=== PATIENT | female | born 1955 | race Caucasian/White ===

== ENCOUNTER 2020-05-14 19:16 | Inpatient (IN) | payer OTHER ==
--- NOTE | 2020-05-14 19:24 | PDOC ---
History of Present Illness - General Chief Complaint: Seizure Stated Complaint: PT PASSED OUT Time Seen by Provider: 05/14/20 19:24 - History of Present Illness Initial Comments: 05/14/20 19:44 64yo F h/o everyday EtOH use w/ PMH HTN and HDL presents s/p passing out after dinner. She was sitting at the table when she went unconscious. Family states her hands started shaking. Unknown how long she was unconscious. Upon waking she felt "slow, and my vision was hot." She pointed to her temples and stated they felt hot. Once she woke up and got up she threw up 5x. She feels "much better now." Denies past seizures, changes in meds, recent illness, travel, sore throat, cough, fever. 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 Drinks EtOH everyday (2glasses of wine). negative CAGE exam. Past History - Travel History Traveled outside of the country in the last 30 days: No - Medical History Allergies/Adverse Reactions: Allergies Allergy/AdvReac Type Severity Reaction Status Date / Time No Known Allergies Allergy Verified 05/14/20 19:27 Home Medications: Ambulatory Orders Olmesartan Medoxomil [Benicar (Nf)] 10 mg PO DAILY 05/14/20 Simvastatin 10 mg PO DAILY 05/14/20 Anemia: No Asthma: No Cancer: No Cardiac Disorders: Yes (regurgitation) Hx Myocardial Infarction: No CVA: No COPD: No CHF: No DVT: No Dementia: No Diabetes: No Hx Glaucoma: No Dialysis: No GI Disorders: No Disorders: No HTN: Yes Hypercholesterolemia: Yes HIV: No Kidney Stones: No Liver Disease: No Psychiatric Problems: No Seizures: No Thyroid Disease: No Lung CA: No Review of Systems - Review of Systems Able to Perform ROS?: Yes Is the patient limited Iranian proficient: No Constitutional: Yes: Weight Stable. No: Chills, Diaphoresis, Fever, Loss of Appetite, Unintentional Wgt. Loss HEENTM: No: Blurred Vision, Recent change in vision, Nose Pain, Tinnitus Respiratory: No: Cough, Orthopnea, Shortness of Breath, Productive cough Cardiac (ROS): No: Chest Pain, Edema, Chest Tightness ABD/GI: No: Constipated, Nausea, Poor Appetite, Vomiting, Abdominal cramping : No: Burning, Dysuria, Discharge, Frequency Musculoskeletal: No: Muscle Pain, Muscle Weakness, Neck Pain Integumentary: No: Dryness, Rash Neurological: No: Headache, Numbness, Paresthesia, Seizure Endocrine: No: Unexplained Weight Loss *Physical Exam - Physical Exam General Appearance: Yes: Nourished, Appropriately Dressed, Apparent Distress, Alcohol on Breath, Intoxicated HEENT: positive: ANDRADE, Normal ENT Inspection, Normal Voice, Pharynx Normal Neck: positive: Trachea midline. negative: Tender, Rigid Respiratory/Chest: positive: Lungs Clear, Normal Breath Sounds. negative: Chest Tender, Respiratory Distress, Accessory Muscle Use Cardiovascular: positive: Regular Rhythm, Regular Rate, S1, S2. negative: JVD, Murmur Gastrointestinal/Abdominal: positive: Normal Bowel Sounds, Soft Musculoskeletal: positive: Normal Inspection. negative: CVA Tenderness Extremity: positive: Normal Capillary Refill Integumentary: positive: Normal Color, Dry, Warm Neurologic: positive: traveling buyer II-XII NML intact, Fully Oriented, Alert, Normal Mood/Affect, Normal Response, Motor Strength 5/5. negative: Numbness Heart Score/ECG Review - History History: Slightly suspicious - Electrocardiogram EKG: Non specific repolarization disturbance - Age Age: >/= 65 - Risk Factors Risk Factors Heart Score: Yes Hx Hypercholesterolemia, Yes Hx Hypertension, Yes Smoking History, Yes Positive family hx of cardiac disease Based on the list above the patient has:: >/=3 risk factors or Hx atherosclerotic disease - Troponin Troponin: </= normal limit - Score Heart Score - Total: 5 ED Treatment Course - LABORATORY CBC & Chemistry Diagram: 05/14/20 21:10 05/14/20 21:10 - RADIOLOGY Radiograph Interpretation: 05/14/20 23:39 THIS IS A PRELIMINARY REPORT DATE OF SERVICE: 2020-05-14 21:07:55 IMAGES: 222 EXAM: HEAD CT WITHOUT CONTRAST HISTORY: Contiguous axial tomographic sections were obtained from the base of the skull to the vertex without the use of intravenous contrast. Sagittal and coronal reformatted images are provided. COMPARISON: None. Preliminary findings/impression: 1. No evidence of acute intracranial hemorrhage on this study. 2. Bilateral ethmoid sinus disease. 3. Nasal septal deviation. 4. Atherosclerotic calcifications. Patient Information: : 1955 Order Type: Preliminary Name: MARIELA GARZA Sex: F Study Description: CT HEAD Modality: CT Location: [facility] Referring Physician: MARIN GREEN One or more of the following dose reduction techniques were used: automated exposure control, adjustment of the mA and/or kV according to patient size, use of iterative reconstructive technique. THIS DOCUMENT HAS BEEN ELECTRONICALLY SIGNED Jan Duggan MD 05/14/2020 21:27 EST Medical Decision Making - Medical Decision Making 05/14/20 20:26 spoke w/ fiance: unconscious [id number]. never hit the floor. no shaking whatsoever. 05/14/20 20:37 Syncope vs. seizure Discharge - Discharge Information Problems reviewed: Yes Clinical Impression/Diagnosis: Syncope and collapse Condition: Fair - Admission Yes - Follow up/Referral Referrals: Jaime Andrew MD [Primary Care Provider] - - Patient Discharge Instructions - Post Discharge Activity
[2020-05-14 19:27] VITALS: BMI 22.6
[2020-05-14] MEDS ORDERED: LACTATED RINGERS SOLUTION 1000 ML INFUS.BAG IV ONE (19:54)
--- NOTE | 2020-05-14 20:36 | PDOC ---
Documentation entered by Swathi Ruiz SCRIBE, acting as scribe for Char Newman MD. Char Newman MD: This documentation has been prepared by the henryibeJoseph Sydney, SCRIBE, under my direction and personally reviewed by me in its entirety. I confirm that the documentation accurately reflects all work, treatment, procedures, and medical decision making performed by me. Attending Attestation - Resident Resident Name: Juvenal Aguilera - ED Attending Attestation I have performed the following: I have examined & evaluated the patient, The case was reviewed & discussed with the resident, I agree w/resident's findings & plan, Exceptions are as noted - HPI HPI: 05/14/20 19:57 64 yo F h/o EtOH abuse, HTN, HLD who presents to the ED s/p syncopal vs siezure episode. As per patient, she was sitting at her dinner with boyfriend and cousin when she suddenly went unconscious for an unknown period of time. she states she was still sitting at the table, did not hit the floor. per EMS, Patients family reported her hands were shaking during the episode. She states she threw up 5 times when regained consciousness she vomited 5 times. now states she feels better. denies recent head trauma. no park. reports 2 glasses of wine today, daily etoh use. denies h/o withdrawal seizures. denies cp sob or fevers recently. additional history per her boyfriend, who states she became unconsiousnes lasting around a minute. boyfriend denies any body shaking. was able to hold her up, and confirms she did not hit the floor. Denies past history of seizures or recent change in medications. Allergies:NKDA PCP: Dr. Simmons 05/14/20 20:23 - Physicial Exam PE: 05/14/20 20:27 awake alert NAD head atraumatic. lungs clear bilat heart RRR no mrg abd soft nt nd ext wwp. skin warm and dry. alert oriented x 3. 5/5/ all four ext. speech clear. - Medical Decision Making 05/14/20 20:35 64 y o F h/o etoh abuse, htn hld s/p syncopal episode, questionable seizure activity. differential includes intoxication, electrolyte abnormality dysrhtymia, dehydration, seizure, plan ct head labs ua cxr, cbc cmp trop ekg Heart Score/ECG Review #1 General ECG Interpretation: Sinus Rhythm, Normal Rate (71), Normal Intervals, No acute ischemic changes (TWI AVL, V2, V3. no st elevation or depression. intervals normal.) #2 General ECG Interpretation: Sinus Rhythm, Normal Rate (68), Normal Intervals, No acute ischemic changes Discharge - Discharge Information Problems reviewed: Yes Clinical Impression/Diagnosis: Syncope and collapse Condition: Fair - Follow up/Referral - Patient Discharge Instructions - Post Discharge Activity
[2020-05-14 21:21] LABS: URINE APPEARANCE CLEAR; URINE BILIRUBIN NEGATIVE (NEGATIVE); URINE COLOR YELLOW; URINE GLUCOSE (UA) NEGATIVE (NEGATIVE); URINE KETONE TRACE (NEGATIVE); URINE LEUK ESTERASE NEGATIVE (NEGATIVE); URINE NITRITE NEGATIVE (NEGATIVE); URINE PROTEIN NEGATIVE (NEGATIVE); URINE UROBILINOGEN 0.2 mg/dL (0.2-1.0)
[2020-05-14 21:31] LABS: COCAINE, UR NEGATIVE ng/ml (CUTOFF=300); OPIATES, URI NEGATIVE ng/ml (CUTOFF=300); PHENCYCLIDINE,URINE NEGATIVE ng/ml (CUTOFF=25); URINE AMPHETAMINES NEGATIVE ng/ml (CUTOFF=500); URINE BARBITURATES NEGATIVE ng/ml (CUTOFF=200)
[2020-05-14 21:32] LABS: METHADONE, UR NEGATIVE ng/ml (CUTOFF=300); URINE BENZODIAZEPINES NEGATIVE ng/ml (CUTOFF=200)
[2020-05-14 21:34] LABS: HEMATOCRIT 35.5 % (32.4-45.2); HEMOGLOBIN 11.9 GM/dL (10.7-15.3); MCHC 33.4 g/dl (32.0-36.0); MEAN CELL VOLUME 89.7 fl (80-96); MEAN PLT VOLUME 8.9 fl (7.5-11.1); PLATELET COUNT 253 K/MM3 (134-434); RBC 3.95 M/mm3 (3.60-5.2); RDW 13.7 % (11.6-15.6); WHITE BLOOD COUNT 11.2 K/mm3 (4.0-10.0)
[2020-05-14 21:41] LABS: ALBUMIN 3.8 g/dl (3.4-5.0); ALK PHOS 54 U/L (45-117); ANION GAP 9 MMOL/L (8-16); BILIRUBIN,TOTAL 0.3 mg/dL (0.2-1); BLOOD UREA NITROGEN 15.2 mg/dL (7-18); CALCIUM 8.8 mg/dL (8.5-10.1); CHLORIDE 105 mmol/L (98-107); CO2 25 mmol/L (21-32); CREATININE 0.8 mg/dL (0.55-1.3); GLUCOSE,RANDOM 79 mg/dL (74-106); LIPASE 104 U/L (73-393); SGOT/AST 18 U/L (15-37); SGPT/ALT 24 U/L (13-61); SODIUM 139 mmol/L (136-145); TOT PROT 7.1 g/dl (6.4-8.2)
--- NOTE | 2020-05-14 23:02 | PN ---
Teaching Attending Note Name of Resident: [place] ATTENDING PHYSICIAN STATEMENT I saw and evaluated the patient. I reviewed the resident's note and discussed the case with the resident. I agree with the resident's findings and plan as documented. SUBJECTIVE: Patient is a 64 year old woman with a PMH of Stress cardiomyopathy (Broken heart syndrome), Alcohol abuse, HTN and HLD who presents to the ER after a syncopal episode. Patient reports she was sitting at her dinner with boyfriend and cousin when she suddenly went unconscious for an unknown period of time. States she was still sitting at the table, did not hit the floor. Patients family reported her hands were shaking during the episode. She states she vomited up 5 times when she regained consciousness and had urinary incontinence. Denies recent head trauma or headache. Drank 2 glasses of wine today and everyday. Denies history of withdrawal seizures or recent change in medications. Patient denies chest pain, shortness of breath, abdominal pain, palpitations, dizziness, fever, chills, diarrhea, constipation, dysuria, frequency, urgency, melena, hematochezia or hematuria. 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 Denies alcohol, tobacco or illicit drug use. No sick contacts or recent travels. Family history of heart attack in mother, "stomach aneurysm" (?AAA) and Alzheimer's dementia in father. OBJECTIVE: Alert and not orthostatic Vital Signs Period Temp Pulse Resp BP Sys/Tolentino Pulse Ox Last 24 Hr 98.2 F 66 18 112/71 97 HEENT: No Jaundice, eye redness or discharge, PERRLA, EOMI. Normocephalic, atraumatic. External ears are normal and hearing is grossly intact. No nasal discharge. Neck: Supple, nontender. No palpable adenopathy or thyromegaly. No JVD Chest: Good effort. Clear to auscultation and percussion. Heart: Regular. No S3, rub or murmur Abdomen: Not distended, soft, nontender and no HSM. No rebound or guarding. Normal bowel sounds. Ext: Peripheral pulses intact. No leg edema. Skin: Warm and dry. No petechiae, rash or ecchymosis. Neuro: Alert. Oriented x3. CN 2-12 grossly intact. Sensation grossly intact in all four extremities and DTR are symmetric. Psych: Appropriate mood and affect. Good insight. Abnormal Lab Results 05/14/20 05/14/20 05/14/20 21:10 21:10 21:10 WBC 11.2 H Urine Ketones Trace H U Marijuana (THC) Screen Positive A* Home Medications Medication Instructions Recorded Olmesartan Medoxomil [Benicar (Nf)] 10 mg PO DAILY 05/14/20 Simvastatin 10 mg PO DAILY 05/14/20 Current Medications Generic Name Dose Route Start Last Admin Trade Name Tanvi PRN Reason Stop Dose Admin Enoxaparin Sodium 40 mg 05/15/20 10:00 Lovenox - SQ DAILY DEVONTE Folic Acid 1 mg 05/15/20 10:00 Folic Acid - PO DAILY DEVONTE Folic Acid 1 mg/ Thiamine HCl 1,000 mls @ 125 mls/hr 05/15/20 01:30 05/15/20 01:48 100 mg/ Multivitamins/Minerals IVPB 05/15/20 09:29 125 mls/hr 10 ml/ Sodium Chloride ONCE ONE Administration Pantoprazole Sodium 20 mg 05/15/20 10:00 Protonix - PO DAILY DEVONTE Thiamine HCl 100 mg 05/15/20 10:00 Vitamin B1 - PO DAILY [facility] ASSESSMENT AND PLAN: 1. Syncope/Rule our seizure - Etiology unclear, but complex partial seizures or alcohol withdrawal are possibilities. Urine toxicology screen showed marijuana. No evidence of acute intracranial pathology on noncontrast head CT scan, but showed bilateral ethmoid sinus disease, nasal septal deviation and atherosclerotic calcifications. Mild leukocytosis may be due to stress - will monitor and get CXR. EKG shows NSR at 71/minute and QTc 465 with no T wave inversion aVL, V1-V3. No old EKG available for comparison. Initial troponin is negative. Viral testing for COVID-19 ordered and patient placed on airborne, droplet and contact isolation. Will admit to telemetry, treat with IV Protonix, IV NS, trend troponin, repeat EKG, get ECHO, EEG, TSH, carotid doppler, fasting lipids, brain MRI, do speech and swallow evaluation and consult PT/Neurology. Will continue comprehensive care for all of patients comorbid conditions. 2. Alcohol abuse Will implement [facility] alcohol withdrawal protocol and do neurochecks. Implement seizure, fall and aspiration precautions. Treat with IV Banana bag, thiamine and folic acid. Monitor and replete electrolytes (Ca,Mg,K,P). Counseled patient about abstaining from alcohol. Will consult marketing graphics specialist and refer to alcohol detox upon discharge. 3. Hypertension Will allow permissive hypertension for 24 to 48 hours. Restart suitable outpatient antihypertensive drugs when clinically appropriate. Subsequently, will revise regimen to ensure [id number] excellent BP control. Patient counseled on the injurious effects of uncontrolled hypertension. Nonpharmacologic measures to control hypertension like weight loss, salt restriction and exercise stressed. Importance of adherence to treatment regimen and attainment of normotension emphasized. 4. DVT prophylaxis - Lovenox 40 mg SQ q 24 hours. 5. Advance directives - Full code
[2020-05-15] MEDS ORDERED: FOLIC ACID INJECTION - 1 MG, THIAMINE HCL 100 MG, MULTIVIT INJECTION ADULT 10 ML in SOD... IVPB ONE (01:30)
--- NOTE | 2020-05-15 02:41 | HP ---
CHIEF COMPLAINT: loss of consciousness PCP: Dr. Simmons HISTORY OF PRESENT ILLNESS: 64 year old female patient with past medical history that includes broken heart syndrome, HTN, and HLD, who presented to the emergency room after a loss of consciousness. The patient had been eating dinner with her cousin and fiance when, per the patient's fiance, the patient suddenly stopped talking and then made snoring sounds for about a minute. The patient reports having loss of consciousness during this time, as well as urinary incontinence. The patient's fiance denied seeing the patient shaking, reporting that he only saw her right hand ball up into a fist, but he reports that the patient's cousin reported seei ng the patient's arm shake. The fiance then tried to get the patient out of her trance, including trying to "do the heimlech maneuver". The patient then came to and became nauseous and vomited 3 to 5 times, which the patient reports only had the stomach contents of her dinner. The patient then went to the bathroom and vomited 2 more times. The patient then went to the bedroom and vomited 2 more times. The patient reports vomiting 2 more times with EMS while coming to the ED. The patient was diagnosed with "having a broken heart" by her Adding Machine Operator Dr. Andrew 3 years ago. Her heart was broken then due to her 's . The patient reports getting an ECHO done, as well as a stress test. She follows up with Dr. Andrew "for her broken heart". ER course was notable for: (1) ECG (2) Head CT, CXR (3) Orthostatics (120/81 lying down, 146/76 sitting, 144/82 standing) Recent Travel: denies PAST MEDICAL HISTORY: HTN, HLD, Broken Heart Syndrome PAST SURGICAL HISTORY: , Tonsillectomy Social History: Smoking: Denies Alcohol: 2 glasses of wine every night Drugs: Marijuana Allergies No Known Allergies Allergy (Verified 05/14/20 19:27) HOME MEDICATIONS: Home Medications Medication Instructions Recorded Olmesartan Medoxomil [Benicar (Nf)] 10 mg PO DAILY 05/14/20 Simvastatin 10 mg PO DAILY 05/14/20 REVIEW OF SYSTEMS CONSTITUTIONAL: Absent: fever, chills HEENT: Absent: tinnitus CARDIOVASCULAR: Absent: chest pain, palpitations peripheral edema RESPIRATORY: Absent: shortness of breath GASTROINTESTINAL: Absent: diarrhea, constipation GENITOURINARY: Absent: dysuria NEUROLOGIC: Absent: headache, dizziness PHYSICAL EXAMINATION Vital Signs - 24 hr 05/14/20 05/14/20 05/15/20 19:22 23:22 00:51 Temperature 98.2 F Pulse Rate 66 Pulse Rate [ 72 68 Apical] Respiratory 18 12 12 Rate Blood Pressure 112/71 Blood Pressure 123/82 118/66 [Left Arm] O2 Sat by Pulse 97 97 97 Oximetry (%) GENERAL: Awake, alert, and fully oriented, in no acute distress. HEAD: Normal with no signs of trauma. EYES: Pupils equal, round and reactive to light, extraocular movements intact. No lid lag. EARS, NOSE, THROAT: Ears normal, nares patent, oropharynx clear without exudates. Moist mucous membranes. NECK: Normal range of motion, supple without lymphadenopathy, JVD, or masses. LUNGS: Breath sounds equal, clear to auscultation bilaterally. No wheezes, and no crackles. No accessory muscle use. HEART: Regular rate and rhythm, normal S1 and S2 without murmur, rub or gallop. ABDOMEN: Soft, nontender, not distended, normoactive bowel sounds, no guarding, no rebound, no masses. MUSCULOSKELETAL: Normal range of motion at all joints. No bony deformities or tenderness. UPPER EXTREMITIES: 2+ pulses, warm, well-perfused. No cyanosis. No clubbing. No peripheral edema. LOWER EXTREMITIES: 2+ pulses, warm, well-perfused. No calf tenderness. No peripheral edema. NEUROLOGICAL: Cranial nerves II-XII intact. Normal speech. Normal gait. Muscle strength +5/5 in upper and lower extremities bilaterally. Sensation intact in upper and lower extremities bilaterally. DTR's +2/4 in upper and lower extremities bilaterally. Cajznj-[id number] test negative. PSYCHIATRIC: Cooperative. Good eye contact. Appropriate mood and affect. SKIN: Warm, dry, normal turgor, no rashes or lesions noted, normal capillary refill. Laboratory Results - last 24 hr 05/14/20 05/14/20 05/14/20 21:10 21:10 21:10 WBC 11.2 H RBC 3.95 Hgb 11.9 Hct 35.5 MCV 89.7 MCH 30.0 MCHC 33.4 RDW 13.7 Plt Count 253 MPV 8.9 Sodium 139 Potassium 4.0 Chloride 105 Carbon Dioxide 25 Anion Gap 9 BUN 15.2 Creatinine 0.8 Est GFR (CKD-EPI)AfAm 89.04 Est GFR (CKD-EPI)NonAf 76.83 Random Glucose 79 Calcium 8.8 Magnesium Total Bilirubin 0.3 AST 18 ALT 24 Alkaline Phosphatase 54 Creatine Kinase 66 Troponin I < 0.02 Total Protein 7.1 Albumin 3.8 Lipase 104 Urine Color Yellow Urine Appearance Clear Urine pH 6.0 Ur Specific [place] 1.016 Urine Protein Negative Urine Glucose (UA) Negative Urine Ketones Trace H Urine Blood Negative Urine Nitrite Negative Urine Bilirubin Negative Urine Urobilinogen 0.2 Ur Leukocyte Esterase Negative Opiates Screen Methadone Screen Barbiturate Screen Phencyclidine Screen Ur Amphetamines Screen MDMA (Ecstasy) Screen Benzodiazepines Screen Cocaine Screen U Marijuana (THC) Screen Alcohol, Quantitative < 3 05/14/20 05/14/20 21:10 21:10 WBC RBC Hgb Hct MCV MCH MCHC RDW Plt Count MPV Sodium Potassium Chloride Carbon Dioxide Anion Gap BUN Creatinine Est GFR (CKD-EPI)AfAm Est GFR (CKD-EPI)NonAf Random Glucose Calcium Magnesium 2.1 Total Bilirubin AST ALT Alkaline Phosphatase Creatine Kinase Troponin I Total Protein Albumin Lipase Urine Color Urine Appearance Urine pH Ur Specific [place] Urine Protein Urine Glucose (UA) Urine Ketones Urine Blood Urine Nitrite Urine Bilirubin Urine Urobilinogen Ur Leukocyte Esterase Opiates Screen Negative Methadone Screen Negative Barbiturate Screen Negative Phencyclidine Screen Negative Ur Amphetamines Screen Negative MDMA (Ecstasy) Screen Negative Benzodiazepines Screen Negative Cocaine Screen Negative U Marijuana (THC) Screen Positive A* Alcohol, Quantitative ASSESSMENT/PLAN: 64 year old female patient with past medical history that includes broken heart syndrome, HTN, and HLD, who presented to the emergency room after a loss of consciousness. 1. Loss of consciousness secondary to Seizure vs. TIA vs. alternate etiology - Head CT showed showed bilateral ethmoid sinus disease, nasal septal deviation and atherosclerotic calcifications. - Orthostatics negative - EEG - TSH - EKG - Carotid Doppler - MRI - Fasting lipids - Neuro consulted 2. HTN - Permissive hypertension in case patient had a TIA - Can restart patient on home blood pressure medications when clinically appropriate # FEN - Monitor Electrolytes. Sodium Controlled Diet (NPO until after fasting lipid profile) DVT PPx - Lovenox SQ Family Medical History Family History: As Documented Family Hx Coronary Artery Disease: Mother ( at 91 from [place]) Other Family History: Father - at 77 of a "stomah aneurysm" per patient (AAA ? ) and had Alzheimer's Disease Visit type - Medication Review Med list reviewed for High Risk Meds patients 65 and older: Yes - Emergency Visit Emergency Visit: Yes ED Registration Date: 05/15/20 Care time: The patient presented to the Emergency Department on the above date and was hospitalized for further evaluation of their emergent condition. - New Patient This patient is new to me today: Yes Date on this admission: 05/15/20 - Critical Care Critical Care patient: No ATTENDING PHYSICIAN STATEMENT I saw and evaluated the patient. I reviewed the resident's note and discussed the case with the resident. I agree with the resident's findings and plan as documented. SUBJECTIVE: OBJECTIVE: ASSESSMENT AND PLAN:
[2020-05-15 07:26] LABS: BASO % 0.4 % (0-2.0); EOS % 3.1 % (0-4.5); HEMOGLOBIN 10.5 GM/dL (10.7-15.3); LYMPH % 23.6 % (8-40); MCH 29.8 pg (25.7-33.7); MCHC 33.8 g/dl (32.0-36.0); MEAN CELL VOLUME 88.4 fl (80-96); MEAN PLT VOLUME 7.5 fl (7.5-11.1); MONO % 10.6 % (3.8-10.2); NEUT % 62.3 % (42.8-82.8); PLATELET COUNT 257 K/MM3 (134-434); RDW 13.7 % (11.6-15.6)
[2020-05-15 07:56] LABS: ALBUMIN 3.3 g/dl (3.4-5.0); BILIRUBIN,TOTAL 0.4 mg/dL (0.2-1); BLOOD UREA NITROGEN 11.2 mg/dL (7-18); CALCIUM 8.2 mg/dL (8.5-10.1); CREATININE 0.7 mg/dL (0.55-1.3); MAGNESIUM 2.1 mg/dL (1.8-2.4); PHOSPHOROUS 3.2 mg/dL (2.5-4.9); POTASSIUM 3.8 mmol/L (3.5-5.1); TOT PROT 5.8 g/dl (6.4-8.2)
[2020-05-15 08:01] LABS: CHOLESTEROL 198 mg/dL (50-200); HDL CHOLESTEROL 101 mg/dL (40-60); LDL CHOLESTEROL (ONLY SJRH) 87 mg/dL (5-100); TRIGLYCERIDES 87 mg/dL (0-150)
--- NOTE | 2020-05-15 09:36 | CON.NEURO ---
Consult - Smoking History Smoking history: Never smoked Have you smoked in the past 12 months: No Home Medications - Allergies Allergies/Adverse Reactions: Allergies Allergy/AdvReac Type Severity Reaction Status Date / Time No Known Allergies Allergy Verified 05/14/20 19:27 - Home Medications Home Medications: Ambulatory Orders Olmesartan Medoxomil [Benicar (Nf)] 10 mg PO DAILY 05/14/20 Simvastatin 10 mg PO DAILY 05/14/20 Family Medical History Family Hx Coronary Artery Disease: Mother ( at 91 from [place]) Other Family History: Father - at 77 of a "stomah aneurysm" per patient (AAA ? ) and had Alzheimer's Disease Physical Exam-Neuro Vital Signs: Vital Signs Temperature 98 F 05/15/20 07:05 Pulse Rate 71 05/15/20 07:05 Respiratory Rate 18 05/15/20 07:05 Blood Pressure 126/77 05/15/20 07:05 O2 Sat by Pulse Oximetry (%) 95 05/15/20 07:05 Labs: CBC, BMP 05/15/20 06:55 05/15/20 06:55 Assessment/Plan cc Passing out and hand shaking episode on april HPI 64 year old female has hitory of broken heart syndrome, HTN, and HLD, who was having dinner with her fiance and cousin. Pateint has slumped over and started making snoring sounds. There was loc and urinary incointnence. Pateint was seen shaking her right hand to and fro. . She has two more episode of vomiting during that time. There was no generalized tonic clonic seizure or toingue bite. Her ct head is normal. She was not orthostatic at arrival. She denies any focal neurological symptoms or sickness. (1) ECG (2) Head CT, CXR (3) Orthostatics (120/81 lying down, 146/76 sitting, 144/82 standing) Recent Travel: denies PAST MEDICAL HISTORY: HTN, HLD, Broken Heart Syndrome PAST SURGICAL HISTORY: , Tonsillectomy Social History: Smoking: Denies Alcohol: 2 glasses of wine every night Drugs: Marijuana Allergies No Known Allergies Allergy (Verified 05/14/20 19:27) HOME MEDICATIONS: Home Medications Medication Instructions Recorded Olmesartan Medoxomil [Benicar (Nf)] 10 mg PO DAILY 08/30/20 Simvastatin 10 mg PO DAILY 05/14/20 ROS,FH,SH reviewed in chart NEUROLOGICAL EXAMINATION Alert oriented x 3, neck is supple vss, speech is normal, eomi, pupils reactive , no face asymmetry moving all ext sensation is normal gait and coordination is normal ct head is unremarkable being admitted to tele for further cardiac evaluation Assessment/Plan 64 year old female history of htn, hld came with episode of passing out and ? focal seizure like activity. Patinet has normal ct head and normal neuro exam. Most likley this event seems to be syncope but possibility of of complex Partial seizure cant be be ruled out Plan: -- no need for AED - MRI of brain - eeg - seizrue precautions and driving precautions discussed with pateint - tele monitoring Thanking you so much Garret Hayward MD
[2020-05-15] MEDS ORDERED: ENOXAPARIN NA (PORCINE) 40 MG/0.4 ML DISP.SYRIN SQ SCH (10:00)
[2020-05-15] MEDS ORDERED: FOLIC ACID 1 MG TABLET (FP) PO SCH (10:00)
[2020-05-15] MEDS ORDERED: PANTOPRAZOLE 20 MG TABLET PO SCH (10:00)
[2020-05-15] MEDS ORDERED: THIAMINE HCL 100 MG TABLET (FP) PO SCH (10:00)
[2020-05-15] MEDS ORDERED: THIAMINE HCL 100 MG TABLET (FP) ONE (10:06)
[2020-05-15] MEDS ORDERED: ENOXAPARIN NA (PORCINE) 40 MG/0.4 ML DISP.SYRIN SQ ONE (10:06)
[2020-05-15] MEDS ORDERED: PANTOPRAZOLE 20 MG TABLET PO ONE (10:06)
[2020-05-15] MEDS ORDERED: FOLIC ACID 1 MG TABLET (FP) ONE (10:06)
--- NOTE | 2020-05-15 10:31 | CONSULT ---
Admitting History and Physical - Admission History of Present Illness: Per EMR- 64 year old female patient with past medical history that includes broken heart syndrome, HTN, and HLD, who presented to the emergency room after a loss of consciousness. The patient had been eating dinner with her cousin and fiance when, per the patient's fiance, the patient suddenly stopped talking and then made snoring sounds for about a minute. The patient reports having loss of consciousness during this time, as well as urinary incontinence. The patient's fiance denied seeing the patient shaking, reporting that he only saw her right hand ball up into a fist, but he reports that the patient's cousin reported seei ng the patient's arm shake. The fiance then tried to get the patient out of her trance, including trying to "do the heimlech maneuver". The patient then came to and became nauseous and vomited 3 to 5 times, which the patient reports only had the stomach contents of her dinner. The patient then went to the bathroom and vomited 2 more times. The patient then went to the bedroom and vomited 2 more times. The patient reports vomiting 2 more times with EMS while coming to the ED. Per neurology-normal ct head and normal neuro exam. Most likely this event seems to be syncope but possibility of of complex Partial seizure cant be be ruled out Plan: -- no need for AED - MRI of brain - eeg - seizrue precautions and driving precautions discussed with pateint - tele monitoring Selected Entries 05/15/20 05/15/20 05/15/20 00:51 07:04 07:05 Temperature 98.1 F 98 F Pulse Rate [ 68 70 71 Apical] Blood Pressure 118/66 146/78 126/77 [Left Arm] Laboratory Tests 05/14/20 05/14/20 05/15/20 21:10 23:05 06:55 WBC 11.2 H 7.0 COVID-19 (TIFFANIE) Pending NPO - Smoking History Smoking history: Never smoked Have you smoked in the past 12 months: No History - Admission Reason For Visit: SYNCOPE AND COLLAPSE Recommendations - Speech Evaluation, Impression/Plan Impression: Chart reviewed. Discharged before seen. Not evaluated.
--- NOTE | 2020-05-15 11:16 | EKG ---
Test Reason : Blood Pressure : / mmHG Vent. Rate : 068 BPM Atrial Rate : 068 BPM P-R Int : 148 ms QRS Dur : 078 ms QT Int : 418 ms P-R-T Axes : 075 012 068 degrees QTc Int : 444 ms NORMAL SINUS RHYTHM NONSPECIFIC T WAVE ABNORMALITY ABNORMAL ECG WHEN COMPARED WITH ECG OF 14-MAY-2020 21:02, NO SIGNIFICANT CHANGE WAS FOUND Confirmed by BJ COLLINS MD ([id number]) on 05/15/2020 11:15:54 AM Referred By: Confirmed By:BJ COLLINS MD
--- NOTE | 2020-05-15 11:16 | EKG ---
Test Reason : Blood Pressure : / mmHG Vent. Rate : 071 BPM Atrial Rate : 071 BPM P-R Int : 156 ms QRS Dur : 080 ms QT Int : 428 ms P-R-T Axes : 074 058 067 degrees QTc Int : 465 ms NORMAL SINUS RHYTHM NONSPECIFIC T WAVE ABNORMALITY ABNORMAL ECG NO PREVIOUS ECGS AVAILABLE Confirmed by BJ COLLINS MD ([id number]) on 05/15/2020 11:16:09 AM Referred By: Confirmed By:BJ COLLINS MD
--- NOTE | 2020-05-15 11:34 | PN ---
Teaching Attending Note Name of Resident: Taryn Guzman ATTENDING PHYSICIAN STATEMENT I saw and evaluated the patient. I reviewed the resident's note and discussed the case with the resident. I agree with the resident's findings and plan as documented. SUBJECTIVE: Feeling better, mild headache. No visual disturbance/limb numbness, weakness, tingling. Nausea/vomiting resolved. OBJECTIVE: Afebrile, Hemodynamically stable. Last Vital Signs Temp Pulse Resp BP Pulse Ox 98 F 71 18 126/77 95 05/15/20 07:05 05/15/20 07:05 05/15/20 07:05 05/15/20 07:05 05/15/20 07:05 HEENT - Atraumatic, Normocephalic Heart - S1, S2, RRR Lungs - clear to auscultation Abdomen - Soft, non-tender. Bowel Sounds normal. Extremities - no edema, no calf tenderness. Neuro - AAO x 3. ANDRADE. EOMI. Tone/Power normal all extremities. Laboratory Results - last 24 hr 05/14/20 05/14/20 05/14/20 21:10 21:10 21:10 WBC 11.2 H RBC 3.95 Hgb 11.9 Hct 35.5 MCV 89.7 MCH 30.0 MCHC 33.4 RDW 13.7 Plt Count 253 MPV 8.9 Absolute Neuts (auto) Neutrophils % Lymphocytes % Monocytes % Eosinophils % Basophils % Nucleated RBC % Sodium 139 Potassium 4.0 Chloride 105 Carbon Dioxide 25 Anion Gap 9 BUN 15.2 Creatinine 0.8 Est GFR (CKD-EPI)AfAm 89.04 Est GFR (CKD-EPI)NonAf 76.83 Random Glucose 79 Calcium 8.8 Phosphorus Magnesium Total Bilirubin 0.3 AST 18 ALT 24 Alkaline Phosphatase 54 Creatine Kinase 66 Troponin I < 0.02 Total Protein 7.1 Albumin 3.8 Triglycerides Cholesterol Total LDL Cholesterol HDL Cholesterol Lipase 104 TSH Urine Color Yellow Urine Appearance Clear Urine pH 6.0 Ur Specific [place] 1.016 Urine Protein Negative Urine Glucose (UA) Negative Urine Ketones Trace H Urine Blood Negative Urine Nitrite Negative Urine Bilirubin Negative Urine Urobilinogen 0.2 Ur Leukocyte Esterase Negative Opiates Screen Methadone Screen Barbiturate Screen Phencyclidine Screen Ur Amphetamines Screen MDMA (Ecstasy) Screen Benzodiazepines Screen Cocaine Screen U Marijuana (THC) Screen Alcohol, Quantitative < 3 05/14/20 05/14/20 05/15/20 21:10 21:10 06:55 WBC 7.0 RBC 3.50 L Hgb 10.5 L Hct 31.0 L MCV 88.4 MCH 29.8 MCHC 33.8 RDW 13.7 Plt Count 257 MPV 7.5 D Absolute Neuts (auto) 4.4 Neutrophils % 62.3 Lymphocytes % 23.6 Monocytes % 10.6 H Eosinophils % 3.1 Basophils % 0.4 Nucleated RBC % 0 Sodium Potassium Chloride Carbon Dioxide Anion Gap BUN Creatinine Est GFR (CKD-EPI)AfAm Est GFR (CKD-EPI)NonAf Random Glucose Calcium Phosphorus Magnesium 2.1 Total Bilirubin AST ALT Alkaline Phosphatase Creatine Kinase Troponin I Total Protein Albumin Triglycerides Cholesterol Total LDL Cholesterol HDL Cholesterol Lipase TSH Urine Color Urine Appearance Urine pH Ur Specific [place] Urine Protein Urine Glucose (UA) Urine Ketones Urine Blood Urine Nitrite Urine Bilirubin Urine Urobilinogen Ur Leukocyte Esterase Opiates Screen Negative Methadone Screen Negative Barbiturate Screen Negative Phencyclidine Screen Negative Ur Amphetamines Screen Negative MDMA (Ecstasy) Screen Negative Benzodiazepines Screen Negative Cocaine Screen Negative U Marijuana (THC) Screen Positive A* Alcohol, Quantitative 05/15/20 05/15/20 06:55 06:55 WBC RBC Hgb Hct MCV MCH MCHC RDW Plt Count MPV Absolute Neuts (auto) Neutrophils % Lymphocytes % Monocytes % Eosinophils % Basophils % Nucleated RBC % Sodium 139 Potassium 3.8 Chloride 108 H Carbon Dioxide 25 Anion Gap 6 L BUN 11.2 Creatinine 0.7 Est GFR (CKD-EPI)AfAm 104.64 Est GFR (CKD-EPI)NonAf 90.29 Random Glucose 77 Calcium 8.2 L Phosphorus 3.2 Magnesium 2.1 Total Bilirubin 0.4 AST 15 ALT 19 Alkaline Phosphatase 45 Creatine Kinase Troponin I < 0.02 Total Protein 5.8 L Albumin 3.3 L Triglycerides 87 Cholesterol 198 Total LDL Cholesterol 87 HDL Cholesterol 101 H Lipase TSH 2.03 Urine Color Urine Appearance Urine pH Ur Specific [place] Urine Protein Urine Glucose (UA) Urine Ketones Urine Blood Urine Nitrite Urine Bilirubin Urine Urobilinogen Ur Leukocyte Esterase Opiates Screen Methadone Screen Barbiturate Screen Phencyclidine Screen Ur Amphetamines Screen MDMA (Ecstasy) Screen Benzodiazepines Screen Cocaine Screen U Marijuana (THC) Screen Alcohol, Quantitative Current Medications Generic Name Dose Route Start Last Admin Trade Name Freq PRN Reason Stop Dose Admin Enoxaparin Sodium 40 mg 05/15/20 10:00 05/15/20 10:25 Lovenox - SQ 40 mg DAILY DEVONTE Administration Folic Acid 1 mg 05/15/20 10:00 05/15/20 10:25 Folic Acid - PO 1 mg DAILY DEVONTE Administration Pantoprazole Sodium 20 mg 05/15/20 10:00 05/15/20 10:25 Protonix - PO 20 mg DAILY DEVONTE Administration Thiamine HCl 100 mg 05/15/20 10:00 05/15/20 10:25 Vitamin B1 - PO 100 mg DAILY DEVONTE Administration Home Medications Medication Instructions Recorded Olmesartan Medoxomil [Benicar (Nf)] 10 mg PO DAILY 05/14/20 Simvastatin 10 mg PO DAILY 05/14/20 ASSESSMENT AND PLAN: 64 year old female with history of Takotsubo Cardiomyopathy, HTN, HLD, admitted after episode of LOC while sitting at dinner table. No preceding CP/palpitations/lightheadedness. Fami;y reports shaking of RUE for . Associated urinary incontinence and post-episode nausea/vomiting x 5. No hematemeis. 1. Syncope suspicious for Seizure, first time event No preceding symptoms, no HI CT Head - sinus disease, no acute findings Orthostatics negative TSH 2.03 ECG - no acute changes, TropI neg Carotid Doppler - mild plaque, no hemodynamically significant stenosis. Echo - small pericardial effusion, no tamponade. EEG done, result pending. MRI shows a small hemosiderin focus in the temporal lobe - chronic microbleed vs hemangioma. Findings on MRI discussed with Neurology Dr. Hayward, who recommends starting Keppra 500mg BID with Neurosurgery referral on discharge, no need for further hospitalization. Evaluated by Cardio and cleared for discharge. 2. HTN - Continue Olmesartan. 3. HLD - on Statin. Medically and Neurologically stable for discharge on Keppra 500 BID with Neurology and Neurosurgery follow up.
[2020-05-15] MEDS ORDERED: ACETAMINOPHEN 325 MG TABLET (FP) PO PRN (11:43)
[2020-05-15] MEDS ORDERED: LOSARTAN POTASSIUM 25 MG TABLET PO SCH (11:45)
[2020-05-15] MEDS ORDERED: ATORVASTATIN CA 10 MG TABLET (FP) PO SCH (11:45)
--- NOTE | 2020-05-15 12:21 | CON.CARD ---
Cardiology Consult (text) - Consultation Consultation Note: cc: syncope hpi: 64 f with hx hld, htn, remote episode of Takotsubo cardiomyopathy here with syncope. Pt ate dinner and was sitting at table and family said she stopped talking and stared blankly at wall, no LOC, no fall, no slumping over. Shortly later pt was alert again and then vomited and then felt ok. No hx of this. No prodrome sxs. No cp sob palps dizzy pnd orthopnea le edema. Active with cardio exercise, no anginal sxs. pmh: per hpi psh: social: no tob fam: no premature cad, scd ros: per hpi; all others nl meds: Home Medications Medication Instructions Recorded Olmesartan Medoxomil [Benicar -] 10 mg PO DAILY 05/14/20 Simvastatin 10 mg PO DAILY 05/14/20 Vital Signs Period Temp Pulse Resp BP Sys/Tolentino Pulse Ox Last 24 Hr 98 F-98.2 F 12-18 112-156/ 95-97 nad no jvd rrr s1 s2 no mrg cta bl nl eff aao3 no le e/c/c abd nt nd pos bs no jaundice diaphoresis pos dp pt no carotid bruits Laboratory Last Values WBC 7.0 K/mm3 (4.0-10.0) 05/15/20 06:55 RBC 3.50 M/mm3 (3.60-5.2) L 05/15/20 06:55 Hgb 10.5 GM/dL (10.7-15.3) L 05/15/20 06:55 Hct 31.0 % (32.4-45.2) L 05/15/20 06:55 MCV 88.4 fl (80-96) 05/15/20 06:55 MCH 29.8 pg (25.7-33.7) 05/15/20 06:55 MCHC 33.8 g/dl (32.0-36.0) 05/15/20 06:55 RDW 13.7 % (11.6-15.6) 05/15/20 06:55 Plt Count 257 K/MM3 (134-434) 05/15/20 06:55 MPV 7.5 fl (7.5-11.1) D 05/15/20 06:55 Absolute Neuts (auto) 4.4 K/mm3 (1.5-8.0) 05/15/20 06:55 Neutrophils % 62.3 % (42.8-82.8) 05/15/20 06:55 Lymphocytes % 23.6 % (8-40) 05/15/20 06:55 Monocytes % 10.6 % (3.8-10.2) H 05/15/20 06:55 Eosinophils % 3.1 % (0-4.5) 05/15/20 06:55 Basophils % 0.4 % (0-2.0) 05/15/20 06:55 Nucleated RBC % 0 % (0-0) 05/15/20 06:55 Sodium 139 mmol/L (136-145) 05/15/20 06:55 Potassium 3.8 mmol/L (3.5-5.1) 05/15/20 06:55 Chloride 108 mmol/L (98-107) H 05/15/20 06:55 Carbon Dioxide 25 mmol/L (21-32) 05/15/20 06:55 Anion Gap 6 MMOL/L (8-16) L 05/15/20 06:55 BUN 11.2 mg/dL (7-18) 05/15/20 06:55 Creatinine 0.7 mg/dL (0.55-1.3) 05/15/20 06:55 Est GFR (CKD-EPI)AfAm 104.64 05/15/20 06:55 Est GFR (CKD-EPI)NonAf 90.29 05/15/20 06:55 Random Glucose 77 mg/dL (74-106) 05/15/20 06:55 Calcium 8.2 mg/dL (8.5-10.1) L 05/15/20 06:55 Phosphorus 3.2 mg/dL (2.5-4.9) 05/15/20 06:55 Magnesium 2.1 mg/dL (1.8-2.4) 05/15/20 06:55 Total Bilirubin 0.4 mg/dL (0.2-1) 05/15/20 06:55 AST 15 U/L (15-37) 05/15/20 06:55 ALT 19 U/L (13-61) 05/15/20 06:55 Alkaline Phosphatase 45 U/L (45-117) 05/15/20 06:55 Creatine Kinase 66 U/L (26-192) 05/14/20 21:10 Troponin I < 0.02 ng/ml (0.00-0.05) 05/15/20 06:55 Total Protein 5.8 g/dl (6.4-8.2) L 05/15/20 06:55 Albumin 3.3 g/dl (3.4-5.0) L 05/15/20 06:55 Triglycerides 87 mg/dL (0-150) 05/15/20 06:55 Cholesterol 198 mg/dL (50-200) 05/15/20 06:55 Total LDL Cholesterol 87 mg/dL (5-100) 05/15/20 06:55 HDL Cholesterol 101 mg/dL (40-60) H 05/15/20 06:55 Lipase 104 U/L (73-393) 05/14/20 21:10 TSH 2.03 uIU/ml (0.358-3.74) 05/15/20 06:55 Urine Color Yellow 05/14/20 21:10 Urine Appearance Clear 05/14/20 21:10 Urine pH 6.0 (5.0-8.0) 05/14/20 21:10 Ur Specific [place] 1.016 (1.010-1.035) 05/14/20 21:10 Urine Protein Negative (NEGATIVE) 05/14/20 21:10 Urine Glucose (UA) Negative (NEGATIVE) 05/14/20 21:10 Urine Ketones Trace (NEGATIVE) H 05/14/20 21:10 Urine Blood Negative (NEGATIVE) 05/14/20 21:10 Urine Nitrite Negative (NEGATIVE) 05/14/20 21:10 Urine Bilirubin Negative (NEGATIVE) 05/14/20 21:10 Urine Urobilinogen 0.2 mg/dL (0.2-1.0) 05/14/20 21:10 Ur Leukocyte Esterase Negative (NEGATIVE) 05/14/20 21:10 Opiates Screen Negative ng/ml (IIFDOI=976) 05/14/20 21:10 Methadone Screen Negative ng/ml (NAAFTD=543) 05/14/20 21:10 Barbiturate Screen Negative ng/ml (IXDHPB=387) 05/14/20 21:10 Phencyclidine Screen Negative ng/ml (CUTOFF=25) 05/14/20 21:10 Ur Amphetamines Screen Negative ng/ml (EOYFDJ=129) 05/14/20 21:10 MDMA (Ecstasy) Screen Negative ng/ml (JKORKI=948) 05/14/20 21:10 Benzodiazepines Screen Negative ng/ml (ICUGXU=076) 05/14/20 21:10 Cocaine Screen Negative ng/ml (DRENUL=268) 05/14/20 21:10 U Marijuana (THC) Screen Positive ng/ml (CUTOFF=50) A* 05/14/20 21:10 Alcohol, Quantitative < 3 mg/dL (0.0-5.0) 05/14/20 21:10 ecg: unremarkable cxr: clear carotids: no sig stenosis a/p: 64 f with hx hld, htn, remote episode of Takotsubo cardiomyopathy here with syncope. syncope: -no signs chf, acs, arrhythmia here -neuro eval in progress -echo done, results pending, if benign then pt can be dc from cardiac pov and f/u with her cardio dr koehler 1-2 weeks. hld: -cont statin htn: -stable, cont home meds Takotsubo cardiomyopathy: -remote history, no signs chf or acs here -echo pending
[2020-05-15] MEDS ORDERED: ATORVASTATIN CA 10 MG TABLET (FP) ONE (12:54)
[2020-05-15] MEDS ORDERED: LOSARTAN POTASSIUM 50 MG TABLET (FP) ONE (12:54)
[2020-05-15] MEDS ORDERED: ACETAMINOPHEN 325 MG TABLET (FP) ONE (12:54)
--- NOTE | 2020-05-15 14:54 | ECHO ---
Name: MARIELA GREG D Exam:Adult Echocardiogram Study Date: 05/15/2020 09:52 AM Age: 64 yrs Height: 61 in Weight: 120 lb BSA: 1.5 m2 MMode/2D Measurements & Calculations Ao root diam: 2.3 cm LAV (MOD-bp): 55.0 ml LA dimension: 3.4 cm ACS: 1.6 cm RV S [place]: 8.6 cm/sec Doppler Measurements & Calculations MV E max tristin: 83.4 cm/sec Ao V2 max: 129.3 cm/sec MV A max tristin: 99.2 cm/sec Ao max P.7 mmHg MV E/A: 0.84 AI P1/2t: 449.3 msec MV dec time: 0.12 sec AI max tristin: 399.1 cm/sec LV V1 max P.0 mmHg AI max P.8 mmHg LV V1 max: 86.9 cm/sec AI dec slope: 260.2 cm/sec2 PA V2 max: 105.9 cm/sec PI end-d tristin: 101.1 cm/sec PA max P.5 mmHg Med Peak E' [place]: 6.7 cm/sec Med E/e': 12.4 Lat Peak E' [place]: 7.3 cm/sec Lat E/e': 11.4 Procedure A complete two-dimensional transthoracic echocardiogram was performed (2D, M-mode, Doppler and color flow Doppler). Left Ventricle The left ventricle is normal in size. Left ventricular systolic function is normal. Ejection Fraction = 60- 65%. No regional wall motion abnormalities noted. Right Ventricle The right ventricle is normal size. The right ventricular systolic function is normal. Atria The left atrial size is normal. Right atrial size is normal. Mitral Valve The mitral valve is normal in structure and function. There is mild mitral regurgitation. Tricuspid Valve The tricuspid valve is normal in structure and function. There is mild tricuspid regurgitation. Aortic Valve The aortic valve is normal in structure and function. Mild aortic regurgitation. Pulmonic Valve The pulmonic valve is not well seen, but is grossly normal. Mild pulmonic valvular regurgitation. Great Vessels The aortic root is normal size. Pericardium/Pleura Small pericardial effusion (<1cm). There are no echocardiographic indications of cardiac tamponade. Interpretation Summary The left ventricle is normal in size. Left ventricular systolic function is normal. No regional wall motion abnormalities noted. Ejection Fraction = 60-65%. There is mild mitral regurgitation. There is mild tricuspid regurgitation. Mild aortic regurgitation. Mild pulmonic valvular regurgitation. Small pericardial effusion (<1cm) There are no echocardiographic indications of cardiac tamponade. Justo Brown MD 05/15/2020 02:54 PM
--- NOTE | 2020-05-15 18:08 | PN ---
Progress Note (short form) - Note Progress Note: went over MRI results with Dr Hayward- patient was found to have a 0.2cm hemosiderin focus in R temporal love convcern for chromic microbleed v. hemangioma- as per Dr Hayward started patient on keppra for seizure ppx with neurosurgery follow up wiht dr. aman espitia- patient stable for dc home with the appropriate follow up
[2020-05-15 18:22] VITALS: BP 171/87; PULSE 74; TEMP 97.9
--- NOTE | 2020-05-15 18:47 | DS ---
Physical Exam: SUBJECTIVE: Patient seen and examined. Denies n/v, headache, CP, SOB. Feels much better. OBJECTIVE: Vital Signs Period Temp Pulse Resp BP Sys/[place] Pulse Ox Last 24 Hr 97.9 F-98.5 F 66-82 12-18 112-171/66-87 95-99 PHYSICAL EXAM GENERAL: The patient is awake, alert, and fully oriented, in no acute distress. HEAD: Normal with no signs of trauma. EYES: PERRL, extraocular movements intact, sclera anicteric, conjunctiva clear. ENT: Ears normal, nares patent, oropharynx clear without exudates, moist mucous membranes. NECK: Trachea midline, full range of motion, supple. LUNGS: Breath sounds equal, clear to auscultation bilaterally, no wheezes, no crackles, no accessory muscle use. HEART: Regular rate and rhythm, S1, S2 without murmur, rub or gallop. ABDOMEN: Soft, nontender, nondistended, normoactive bowel sounds, no guarding, no rebound, no hepatosplenomegaly, no masses. EXTREMITIES: 2+ pulses, warm, well-perfused, no edema. NEUROLOGICAL: Cranial nerves II through XII grossly intact. Normal speech, gait not observed. PSYCH: Normal mood, normal affect. SKIN: Warm, dry, normal turgor, no rashes or lesions noted. LABS Laboratory Results - last 24 hr 05/14/20 05/14/20 05/14/20 21:10 21:10 21:10 WBC 11.2 H RBC 3.95 Hgb 11.9 Hct 35.5 MCV 89.7 MCH 30.0 MCHC 33.4 RDW 13.7 Plt Count 253 MPV 8.9 Absolute Neuts (auto) Neutrophils % Lymphocytes % Monocytes % Eosinophils % Basophils % Nucleated RBC % Sodium 139 Potassium 4.0 Chloride 105 Carbon Dioxide 25 Anion Gap 9 BUN 15.2 Creatinine 0.8 Est GFR (CKD-EPI)AfAm 89.04 Est GFR (CKD-EPI)NonAf 76.83 Random Glucose 79 Calcium 8.8 Phosphorus Magnesium Total Bilirubin 0.3 AST 18 ALT 24 Alkaline Phosphatase 54 Creatine Kinase 66 Troponin I < 0.02 Total Protein 7.1 Albumin 3.8 Triglycerides Cholesterol Total LDL Cholesterol HDL Cholesterol Lipase 104 TSH Urine Color Yellow Urine Appearance Clear Urine pH 6.0 Ur Specific [place] 1.016 Urine Protein Negative Urine Glucose (UA) Negative Urine Ketones Trace H Urine Blood Negative Urine Nitrite Negative Urine Bilirubin Negative Urine Urobilinogen 0.2 Ur Leukocyte Esterase Negative Opiates Screen Methadone Screen Barbiturate Screen Phencyclidine Screen Ur Amphetamines Screen MDMA (Ecstasy) Screen Benzodiazepines Screen Cocaine Screen U Marijuana (THC) Screen Alcohol, Quantitative < 3 05/14/20 05/14/20 05/15/20 21:10 21:10 06:55 WBC 7.0 RBC 3.50 L Hgb 10.5 L Hct 31.0 L MCV 88.4 MCH 29.8 MCHC 33.8 RDW 13.7 Plt Count 257 MPV 7.5 D Absolute Neuts (auto) 4.4 Neutrophils % 62.3 Lymphocytes % 23.6 Monocytes % 10.6 H Eosinophils % 3.1 Basophils % 0.4 Nucleated RBC % 0 Sodium Potassium Chloride Carbon Dioxide Anion Gap BUN Creatinine Est GFR (CKD-EPI)AfAm Est GFR (CKD-EPI)NonAf Random Glucose Calcium Phosphorus Magnesium 2.1 Total Bilirubin AST ALT Alkaline Phosphatase Creatine Kinase Troponin I Total Protein Albumin Triglycerides Cholesterol Total LDL Cholesterol HDL Cholesterol Lipase TSH Urine Color Urine Appearance Urine pH Ur Specific [place] Urine Protein Urine Glucose (UA) Urine Ketones Urine Blood Urine Nitrite Urine Bilirubin Urine Urobilinogen Ur Leukocyte Esterase Opiates Screen Negative Methadone Screen Negative Barbiturate Screen Negative Phencyclidine Screen Negative Ur Amphetamines Screen Negative MDMA (Ecstasy) Screen Negative Benzodiazepines Screen Negative Cocaine Screen Negative U Marijuana (THC) Screen Positive A* Alcohol, Quantitative 05/15/20 05/15/20 06:55 06:55 WBC RBC Hgb Hct MCV MCH MCHC RDW Plt Count MPV Absolute Neuts (auto) Neutrophils % Lymphocytes % Monocytes % Eosinophils % Basophils % Nucleated RBC % Sodium 139 Potassium 3.8 Chloride 108 H Carbon Dioxide 25 Anion Gap 6 L BUN 11.2 Creatinine 0.7 Est GFR (CKD-EPI)AfAm 104.64 Est GFR (CKD-EPI)NonAf 90.29 Random Glucose 77 Calcium 8.2 L Phosphorus 3.2 Magnesium 2.1 Total Bilirubin 0.4 AST 15 ALT 19 Alkaline Phosphatase 45 Creatine Kinase Troponin I < 0.02 Total Protein 5.8 L Albumin 3.3 L Triglycerides 87 Cholesterol 198 Total LDL Cholesterol 87 HDL Cholesterol 101 H Lipase TSH 2.03 Urine Color Urine Appearance Urine pH Ur Specific [place] Urine Protein Urine Glucose (UA) Urine Ketones Urine Blood Urine Nitrite Urine Bilirubin Urine Urobilinogen Ur Leukocyte Esterase Opiates Screen Methadone Screen Barbiturate Screen Phencyclidine Screen Ur Amphetamines Screen MDMA (Ecstasy) Screen Benzodiazepines Screen Cocaine Screen U Marijuana (THC) Screen Alcohol, Quantitative HOSPITAL COURSE: Date of Admission:05/15/20 Pt came to the ED for episode of syncope/LOC without trauma to the head, urinary incontinence, followed by nonbilious and nonbloody episodes of nausea/vomiting x5, admitted for syncope suspicious for seizure. CT head was negative for bleed, orthostatic negative, TSH within normal limits, EKG with no acute changes, trop negative x3. Carotid Doppler with minimal intimal thickening and no hemodynamically significant stenosis. Echo shows EF 60-65% and small pericardial effusion with no signs of tamponade, MRI brain shows 0.2cm focus in R temporal lobe microbleed vs hemangioma. Neuro started keppra for seizure ppx with neurosurg follow up EEG to be completed outpatient. Pt was continued on home meds for htn and hld. Pt will follow up outpatient with neurology (Dr. Hayward), cardiology (Dr. Davila), neurosurg and PCP. Date of Discharge: 05/15/20 Minutes to complete discharge: 36 Discharge Summary Problems reviewed: Yes Reason For Visit: SYNCOPE AND COLLAPSE Current Active Problems Syncope and collapse (Acute) Condition: Stable - Instructions Diet, Activity, Other Instructions: You came to the hospital after losing consciousness at home and suffering a possible seizure. You were seen by both a cv rn and a neurologist while you were here. We did imaging of carotid arteries all of which were normal. The imaging of your heart showed a tiny amount of fluid around the heart however stable, and you will need to have this repeated. We did an MRI of your brain which showed a chronic lesion that will need to be followed up with by a neurosurgeon for [facility]. evaluation Your symptoms improved and you were stable to be discharged home. Please resume all of your home medications We are also starting you on a new medication Keppra (for seizure prophylaxis) 500mg to be taken twice a day Please follow up with your primary care physician, Dr Simmons within one week Please follow up with the neurologist, Dr Hayward upon discharge for review of your EEG and further management. Please follow up with your cardiolgist Dr Massey for outpatient follow up within one week to review your Echocardiogram that shows a small pericardial effusion. Please follow up with neurosurgeon, Dr Amador for further evaluation of the hemangioma seen on brain MRI *if you begin to experience seizures, jerking movements, chest pains, shortness of breath, dizziness,nasuea/vomiting please return to the emergency room immediately Referrals: Garret Hayward MD [Staff Physician] - 1 Week (syncope follow up.) Zachary Simmons MD [Non Staff, Medical] - Adrián Amador MD [Staff Physician] - 1 Week (hemoiderin focus in temporal lobe, syncope vs seizure.) Jaime Andrew MD [Primary Care Provider] - 1 Week (Pericardial effusion follow up, syncope follow up) Disposition: HOME - Home Medications Comprehensive Discharge Medication List: Ambulatory Orders Olmesartan Medoxomil [Benicar -] 10 mg PO DAILY 05/14/20 Simvastatin 10 mg PO DAILY 05/14/20 levETIRAcetam [Keppra -] 500 mg PO BID #60 tablet 05/15/20 This patient is new to me today: No Emergency Visit: Yes ED Registration Date: 05/15/20 Care time: The patient presented to the Emergency Department on the above date and was hospitalized for further evaluation of their emergent condition. Critical Care patient: No - Discharge Referral Referred to [facility] No ATTENDING PHYSICIAN STATEMENT I saw and evaluated the patient. I reviewed the resident's note and discussed the case with the resident. I agree with the resident's findings and plan as documented. SUBJECTIVE: OBJECTIVE: ASSESSMENT AND PLAN:
== END 2020-05-15 18:00 | disposition home or self-care (01) | DRG 101 ==
LOC: JER 19:16 → JERBED 22:16 → OBSVTOIN 05-15 01:16
PROVIDERS: ADMIT Internal Medicine
DX: R56.9 Unspecified convulsions (principal); R55 Syncope and collapse; I10 Essential (primary) hypertension; E78.5 Hyperlipidemia, unspecified; F10.10 Alcohol abuse, uncomplicated; D72.829 Elevated white blood cell count, unspecified
CPT/HCPCS: 36415; 70450-TC; 70553-TC; 71045-TC-FY; 80053; 80061; 80307; 81003; 82550; 83690; 83721; 83735; 84100; 84443; 84484; 85025; 85027; 87077; 87086; 93005; 93010; 93306-TC; 93880-TC; 95816; 99285-25; A9579; G0378; U0003